=== PATIENT | female | born 1990 | race Caucasian/White ===

== ENCOUNTER 2019-03-09 18:10 | Emergency (ER) | payer BC ==
[2019-03-09 18:33] VITALS: RESP 18; TEMP 98.6
[2019-03-09] MEDS ORDERED: METOCLOPRAMIDE 5 MG/ML 2 ML VIAL IVP STA (19:03)
[2019-03-09] MEDS ORDERED: SODIUM CHLORIDE 0.9% 1,000 ML IV STA (19:04)
--- NOTE | 2019-03-09 19:06 | ED ---
General Adult HPI - General Chief complaint: Nausea/Vomiting/Diarrhea Stated complaint: 8 weeks and not able to keep anything earl Time Seen by Provider: 03/09/19 18:35 Source: patient, RN notes reviewed Mode of arrival: ambulatory Limitations: no limitations - History of Present Illness Initial comments: 28-year-old female currently 8 weeks presents to the emergency department for a chief complaint of nausea and vomiting. Patient states that since she has gotten she has been very nauseous. States that she vomits about 1-2 times per day. States she does not feel that she is keeping down solids or liquids well and is concerned this could be affecting the baby. Patient denies any vaginal bleeding or pelvic pain. Patient states she has not had an ultrasound but would prefer to wait for an OB to have this done. States that she is currently trying to schedule an appointment for this. Patient denies any fevers or chills. Denies any abdominal pain or diarrhea.Patient has no other complaints at this time including shortness of breath, chest pain, abdominal pain, headache, or visual changes. - Related Data Home Medications Medication Instructions Recorded Confirmed No Known Home Medications 03/09/19 03/09/19 Allergies Allergy/AdvReac Type Severity Reaction Status Date / Time diphenhydramine Allergy Dyspnea Verified 03/09/19 19:21 latex Allergy Unknown Verified 03/09/19 19:21 peanut Allergy Unknown Verified 03/09/19 19:21 promethazine [From Phenergan] Allergy Dyspnea Verified 03/09/19 19:21 Review of Systems ROS Statement: Those systems with pertinent positive or pertinent negative responses have been documented in the HPI. ROS Other: All systems not noted in ROS Statement are negative. Past Medical History Past Medical History: No Reported History History of Any Multi-Drug Resistant Organisms: None Reported Past Surgical History: Cholecystectomy Past Psychological History: No Psychological Hx Reported Smoking Status: Never smoker Past Alcohol Use History: None Reported Past Drug Use History: None Reported General Exam Limitations: no limitations General appearance: alert, in no apparent distress Head exam: Present: atraumatic, normocephalic, normal inspection Eye exam: Present: normal appearance, PERRL, EOMI. Absent: scleral icterus, conjunctival injection, periorbital swelling ENT exam: Present: normal exam, mucous membranes moist Neck exam: Present: normal inspection, full ROM. Absent: tenderness, meningismus, lymphadenopathy Respiratory exam: Present: normal lung sounds bilaterally. Absent: respiratory distress, wheezes, rales, rhonchi, stridor Cardiovascular Exam: Present: regular rate, normal rhythm, normal heart sounds. Absent: systolic murmur, diastolic murmur, rubs, gallop, clicks GI/Abdominal exam: Present: soft, normal bowel sounds. Absent: distended, tenderness, guarding, rebound, rigid External exam: Present: other (Refuses pelvic exam) Neurological exam: Present: alert, oriented X3 Psychiatric exam: Present: normal affect, normal mood Course Vital Signs 03/09/19 18:30 Temperature 98.6 F Pulse Rate 81 Respiratory 18 Rate Blood Pressure 115/80 O2 Sat by Pulse 99 Oximetry Medical Decision Making - Medical Decision Making 28-year-old female currently 8 weeks presents for chief clinic nausea vomiting. States that since she has gotten she has been very nauseous. States she vomits about 1-2 times per day. Denies any abdominal pain or pelvic pain. Last menstrual period being January 15. Patient has not yet followed up with an OB but is calling to make appointments. On exam patient is well- appearing. Vitals are stable. CBC and CMP are unremarkable. No evidence of dehydration. Urine is negative for infection. HCG Quant did come back at 225,000. Initially discussed with patient and she refused ultrasound. However bedside ultrasound was performed by myself and Dr. Galvan to rule out molar . At this time no evidence for molar . Ultrasound appears normal. Intrauterine is noted. Patient feeling somewhat better after medicines given. She will return here if she has any worsening symptoms. Otherwise she will follow-up with [facility] LEGAL ASSISTANT in one to 2 days. - Lab Data Result diagrams: 03/09/19 18:52 03/09/19 18:52 Lab Results 03/09/19 03/09/19 03/09/19 Range/Units 18:52 18:52 19:50 WBC 7.2 (3.8-10.6) k/uL RBC 4.87 (3.80-5.40) m/uL Hgb 14.5 (11.4-16.0) gm/dL Hct 43.2 (34.0-46.0) % MCV 88.8 (80.0-100.0) fL MCH 29.7 (25.0-35.0) pg MCHC 33.5 (31.0-37.0) g/dL RDW 15.3 (11.5-15.5) % Plt Count 287 (150-450) k/uL Neutrophils % 71 % Lymphocytes % 21 % Monocytes % 5 % Eosinophils % 1 % Basophils % 0 % Neutrophils # 5.1 (1.3-7.7) k/uL Lymphocytes # 1.5 (1.0-4.8) k/uL Monocytes # 0.4 (0-1.0) k/uL Eosinophils # 0.1 (0-0.7) k/uL Basophils # 0.0 (0-0.2) k/uL Sodium 137 (137-145) mmol/L Potassium 4.2 (3.5-5.1) mmol/L Chloride 100 (98-107) mmol/L Carbon Dioxide 24 (22-30) mmol/L Anion Gap 13 mmol/L BUN 11 (7-17) mg/dL Creatinine 0.51 L (0.52-1.04) mg/dL Est GFR (CKD-EPI)AfAm >90 (>60 ml/min/1.73 sqM) Est GFR (CKD-EPI)NonAf >90 (>60 ml/min/1.73 sqM) Glucose 96 (74-99) mg/dL Calcium 10.1 (8.4-10.2) mg/dL Total Bilirubin 0.3 (0.2-1.3) mg/dL AST 20 (14-36) U/L ALT 10 (9-52) U/L Alkaline Phosphatase 72 (38-126) U/L Total Protein 8.3 H (6.3-8.2) g/dL Albumin 4.8 (3.5-5.0) g/dL Amylase 66 (30-110) U/L Lipase 160 (23-300) U/L HCG, Quant >734196.0 mIU/mL Urine Color Yellow Urine Appearance Clear (Clear) Urine pH 6.0 (5.0-8.0) Ur Specific [place] 1.029 (1.001-1.035) Urine Protein Trace H (Negative) Urine Glucose (UA) Negative (Negative) Urine Ketones 1+ H (Negative) Urine Blood Negative (Negative) Urine Nitrite Negative (Negative) Urine Bilirubin Negative (Negative) Urine Urobilinogen <2.0 (<2.0) mg/dL Ur Leukocyte Esterase Negative (Negative) Disposition Clinical Impression: Nausea and vomiting in Disposition: HOME SELF-CARE Condition: Good Instructions (If sedation given, give patient instructions): Hyperemesis Gravidarum (ED) Additional Instructions: Please drink plenty of fluids. Follow-up with [facility]GAL ASSISTANT in one to 2 days. Return here if you have any worsening symptoms or vaginal bleeding. Is patient prescribed a controlled substance at d/c from ED?: No Referrals: Earnestine Viveros DO [Doctor of Osteopathic Medicine] - 1-2 days Time of Disposition: 21:56
[2019-03-09 19:45] LABS: Basophils % (A) 0 %; Eosinophils # (A) 0.1 k/uL (0-0.7); Eosinophils % (A) 1 %; HCT 43.2 % (34.0-46.0); HGB 14.5 gm/dL (11.4-16.0); Lymphocytes # (A) 1.5 k/uL (1.0-4.8); Lymphocytes % (A) 21 %; MCH 29.7 pg (25.0-35.0); MCHC 33.5 g/dL (31.0-37.0); MCV 88.8 fL (80.0-100.0); Mean Platelet Volume 7.2; Monocytes # (A) 0.4 k/uL (0-1.0); Monocytes % (A) 5 %; Neutrophils # (A) 5.1 k/uL (1.3-7.7); Neutrophils % (A) 71 %; Platelet Count 287 k/uL (150-450); RBC 4.87 m/uL (3.80-5.40); RDW 15.3 % (11.5-15.5); WBC 7.2 k/uL (3.8-10.6)
[2019-03-09 19:56] LABS: ALT 10 U/L (9-52); AST 20 U/L (14-36); African American GFR (CKD) >90 (>60 ml/min/1.73 sqM); Albumin 4.8 g/dL (3.5-5.0); Alkaline Phosphatase 72 U/L (38-126); Amylase 66 U/L (30-110); Anion Gap 13 mmol/L; Blood Urea Nitrogen 11 mg/dL (7-17); Calcium 10.1 mg/dL (8.4-10.2); Carbon Dioxide 24 mmol/L (22-30); Chloride 100 mmol/L (98-107); Glucose 96 mg/dL (74-99); Potassium 4.2 mmol/L (3.5-5.1); Sodium 137 mmol/L (137-145); Total Bilirubin 0.3 mg/dL (0.2-1.3); Total Protein 8.3 g/dL (6.3-8.2)
[2019-03-09 20:45] LABS: Appearance,Urine Clear (Clear); Bilirubin,Urine Negative (Negative); Blood,Urine Negative (Negative); Color,Urine Yellow; Glucose,Urine (UA) Negative (Negative); Ketones,Urine 1+ (Negative); Leukocyte Esterase,Urine Negative (Negative); Nitrite,Urine Negative (Negative); Protein,Urine Trace (Negative); Specific Gravity,Urine 1.029 (1.001-1.035); Urobilinogen,Urine <2.0 mg/dL (<2.0)
[2019-03-09 21:14] LABS: HCG,Quantitative Serum >225000.0 mIU/mL
[2019-03-09 22:14] VITALS: BP 110/74; PULSE 85
== END 2019-03-09 22:13 | disposition home or self-care (01) ==
LOC: EC 18:10
DX: O21.9 Vomiting of pregnancy, unspecified (principal); O99.89 Other specified diseases and conditions complicating pregnancy, childbirth and the puerperium; R19.7 Diarrhea, unspecified; Z88.8 Allergy status to other drugs, medicaments and biological substances; Z91.040 Latex allergy status; Z91.010 Allergy to peanuts; Z53.29 Procedure and treatment not carried out because of patient's decision for other reasons; Z3A.08 8 weeks gestation of pregnancy
CPT/HCPCS: 36415; 80053; 82150; 83690; 85025; 81003; 84702; 99284; 96374; 96361; J2765

== ENCOUNTER 2019-03-11 20:29 | Emergency (ER) | payer BC ==
[2019-03-11] MEDS ORDERED: SODIUM CHLORIDE 0.9% 1,000 ML IV STA ×2 (21:07→22:59)
[2019-03-11] MEDS ORDERED: METOCLOPRAMIDE 5 MG/ML 2 ML VIAL IVP STA (22:02)
[2019-03-11] MEDS ORDERED: DEXTROSE 5%-0.45% NACL 1,000 ML IV ONE (22:02)
--- NOTE | 2019-03-11 22:04 | ED ---
General Adult HPI - General Chief complaint: Nausea/Vomiting/Diarrhea Stated complaint: vomiting Time Seen by Provider: 03/11/19 21:04 Source: patient, RN notes reviewed Mode of arrival: ambulatory Limitations: no limitations - History of Present Illness Initial comments: 28-year-old female presents to the emergency department for a chief complaint of nausea vomiting. Patient is a . Patient is currently about 9 weeks . States that she does not think she is keeping anything down. States that she is having multiple times a day and it seems to be getting worse. Patient denies any pelvic pain or vaginal bleeding. Patient is concerned that she is dehydrated and malnourished. Patient states she is trying to follow-up with an WAREHOUSE SHIPPING CLERK but has been unable to make an appointment.Patient has no other complaints at this time including shortness of breath, chest pain, abdominal pain, headache, or visual changes. - Related Data Previous Rx's Medication Instructions Recorded Doxylamine/Pyridoxine HCl (B6) 1 each PO HS #15 tablet. 03/11/19 [Silvia Albarado 10-10 mg Tablet] Metoclopramide HCl [Reglan] 10 mg PO ONCE PRN #1 tablet 03/11/19 Allergies Allergy/AdvReac Type Severity Reaction Status Date / Time diphenhydramine Allergy Dyspnea Verified 03/11/19 20:45 latex Allergy Unknown Verified 03/11/19 20:45 peanut Allergy Unknown Verified 03/11/19 20:45 promethazine [From Phenergan] Allergy Dyspnea Verified 03/11/19 20:45 Review of Systems ROS Statement: Those systems with pertinent positive or pertinent negative responses have been documented in the HPI. ROS Other: All systems not noted in ROS Statement are negative. Past Medical History Past Medical History: No Reported History History of Any Multi-Drug Resistant Organisms: None Reported Past Surgical History: Cholecystectomy Additional Past Surgical History / Comment(s): wisdom teeth Past Psychological History: No Psychological Hx Reported Smoking Status: Never smoker Past Alcohol Use History: None Reported Past Drug Use History: None Reported General Exam Limitations: no limitations General appearance: alert, in no apparent distress Head exam: Present: atraumatic, normocephalic, normal inspection Eye exam: Present: normal appearance, PERRL, EOMI. Absent: scleral icterus, conjunctival injection, periorbital swelling ENT exam: Present: normal exam, mucous membranes moist Neck exam: Present: normal inspection, full ROM. Absent: tenderness, meningismus, lymphadenopathy Respiratory exam: Present: normal lung sounds bilaterally. Absent: respiratory distress, wheezes, rales, rhonchi, stridor Cardiovascular Exam: Present: regular rate, normal rhythm, normal heart sounds. Absent: systolic murmur, diastolic murmur, rubs, gallop, clicks GI/Abdominal exam: Present: soft, normal bowel sounds. Absent: distended, tenderness, guarding, rebound, rigid Neurological exam: Present: alert Psychiatric exam: Present: normal affect, normal mood Course Vital Signs 03/11/19 03/11/19 20:42 21:48 Temperature 99.2 F Pulse Rate 110 H Respiratory 20 16 Rate Blood Pressure 120/78 O2 Sat by Pulse 97 Oximetry Medical Decision Making - Medical Decision Making 28-year-old female presents to the emergency department for a chief complaint of nausea vomiting. Patient is currently 8 weeks . On presentation patient is well-appearing. She delivered one episode of emesis here in the emergency department. Patient has not been able to follow-up with an OB as of yet. Patient did have an bedside ultrasound the last time she was in the emergency department which showed an intrauterine . CBC CMP unremarkable. Urine does show 4+ ketones. Patient was given fluids and Reglan. She is feeling much better. Patient will be discharged home after 2 L of fluids. She will be given likely just and 1 Reglan. She'll return if she has any worsening symptoms. - Lab Data Result diagrams: 03/11/19 21:40 03/11/19 21:40 Lab Results 03/11/19 03/11/19 03/11/19 Range/Units 21:40 21:40 22:15 WBC 7.7 (3.8-10.6) k/uL RBC 4.88 (3.80-5.40) m/uL Hgb 14.1 (11.4-16.0) gm/dL Hct 43.3 (34.0-46.0) % MCV 88.8 (80.0-100.0) fL MCH 28.9 (25.0-35.0) pg MCHC 32.6 (31.0-37.0) g/dL RDW 14.5 (11.5-15.5) % Plt Count 311 (150-450) k/uL Neutrophils % 81 % Lymphocytes % 11 % Monocytes % 5 % Eosinophils % 1 % Basophils % 0 % Neutrophils # 6.3 (1.3-7.7) k/uL Lymphocytes # 0.9 L (1.0-4.8) k/uL Monocytes # 0.4 (0-1.0) k/uL Eosinophils # 0.1 (0-0.7) k/uL Basophils # 0.0 (0-0.2) k/uL Sodium 138 (137-145) mmol/L Potassium 4.2 (3.5-5.1) mmol/L Chloride 104 (98-107) mmol/L Carbon Dioxide 22 (22-30) mmol/L Anion Gap 12 mmol/L BUN 12 (7-17) mg/dL Creatinine 0.51 L (0.52-1.04) mg/dL Est GFR (CKD-EPI)AfAm >90 (>60 ml/min/1.73 sqM) Est GFR (CKD-EPI)NonAf >90 (>60 ml/min/1.73 sqM) Glucose 93 (74-99) mg/dL Calcium 9.7 (8.4-10.2) mg/dL Total Bilirubin 0.4 (0.2-1.3) mg/dL AST 24 (14-36) U/L ALT 16 (9-52) U/L Alkaline Phosphatase 72 (38-126) U/L Total Protein 8.0 (6.3-8.2) g/dL Albumin 4.5 (3.5-5.0) g/dL Amylase 68 (30-110) U/L Lipase 176 (23-300) U/L HCG, Quant >029849.0 mIU/mL Urine Color Yellow Urine Appearance Clear (Clear) Urine pH 6.0 (5.0-8.0) Ur Specific [place] 1.038 H (1.001-1.035) Urine Protein 1+ H (Negative) Urine Glucose (UA) Negative (Negative) Urine Ketones 4+ H (Negative) Urine Blood Negative (Negative) Urine Nitrite Negative (Negative) Urine Bilirubin Negative (Negative) Urine Urobilinogen 2.0 (<2.0) mg/dL Ur Leukocyte Esterase Negative (Negative) Urine WBC 1 (0-5) /hpf Ur Squamous Epith Cells 1 (0-4) /hpf Urine Bacteria Rare H (None) /hpf Urine Mucus Many H (None) /hpf Disposition Clinical Impression: Nausea and vomiting in Disposition: HOME SELF-CARE Condition: Good Instructions (If sedation given, give patient instructions): Hyperemesis Gravidarum (ED) Additional Instructions: Please take medications as directed. Please follow-up with primary care and WAREHOU[facility] SHIPPING CLERK in 1-2 days. Return here to the emergency department if you have any worsening symptoms. Prescriptions: Doxylamine/Pyridoxine HCl (B6) [Silvia Albarado 10-10 mg Tablet] 1 each PO HS #15 tablet. Metoclopramide HCl [Reglan] 10 mg PO ONCE PRN #1 tablet PRN Reason: Nausea Is patient prescribed a controlled substance at d/c from ED?: No Referrals: David Abernathy MD [STAFF PHYSICIAN] - 1-2 days Paz Luciano MD [STAFF PHYSICIAN] - 1-2 days Time of Disposition: 23:40
[2019-03-11 22:05] LABS: Basophils % (A) 0 %; Eosinophils # (A) 0.1 k/uL (0-0.7); Eosinophils % (A) 1 %; HCT 43.3 % (34.0-46.0); HGB 14.1 gm/dL (11.4-16.0); Lymphocytes # (A) 0.9 k/uL (1.0-4.8); Lymphocytes % (A) 11 %; MCH 28.9 pg (25.0-35.0); MCHC 32.6 g/dL (31.0-37.0); MCV 88.8 fL (80.0-100.0); Mean Platelet Volume 7.2; Monocytes # (A) 0.4 k/uL (0-1.0); Monocytes % (A) 5 %; Neutrophils # (A) 6.3 k/uL (1.3-7.7); Neutrophils % (A) 81 %; Platelet Count 311 k/uL (150-450); RBC 4.88 m/uL (3.80-5.40); RDW 14.5 % (11.5-15.5); WBC 7.7 k/uL (3.8-10.6)
[2019-03-11 22:14] LABS: ALT 16 U/L (9-52); AST 24 U/L (14-36); African American GFR (CKD) >90 (>60 ml/min/1.73 sqM); Albumin 4.5 g/dL (3.5-5.0); Alkaline Phosphatase 72 U/L (38-126); Amylase 68 U/L (30-110); Anion Gap 12 mmol/L; Blood Urea Nitrogen 12 mg/dL (7-17); Calcium 9.7 mg/dL (8.4-10.2); Carbon Dioxide 22 mmol/L (22-30); Chloride 104 mmol/L (98-107); Glucose 93 mg/dL (74-99); Potassium 4.2 mmol/L (3.5-5.1); Sodium 138 mmol/L (137-145); Total Bilirubin 0.4 mg/dL (0.2-1.3)
[2019-03-11 22:31] LABS: Appearance,Urine Clear (Clear); Bacteria,Urine Rare /hpf; Bilirubin,Urine Negative (Negative); Blood,Urine Negative (Negative); Color,Urine Yellow; Glucose,Urine (UA) Negative (Negative); Ketones,Urine 4+ (Negative); Leukocyte Esterase,Urine Negative (Negative); Mucus,Urine Many /hpf; Nitrite,Urine Negative (Negative); Protein,Urine 1+ (Negative); Specific Gravity,Urine 1.038 (1.001-1.035); Squamous Epithelial Cell,Urine 1 /hpf (0-4); WBC,Urine 1 /hpf (0-5)
[2019-03-11 22:57] LABS: HCG,Quantitative Serum >225000.0 mIU/mL
[2019-03-11 23:47] VITALS: BP 100/69; PULSE 94; RESP 18; TEMP 98
== END 2019-03-12 00:06 | disposition home or self-care (01) ==
LOC: EC 20:29
DX: O21.9 Vomiting of pregnancy, unspecified (principal); O99.89 Other specified diseases and conditions complicating pregnancy, childbirth and the puerperium; R82.4 Acetonuria; Z3A.08 8 weeks gestation of pregnancy; Z90.49 Acquired absence of other specified parts of digestive tract; Z88.6 Allergy status to analgesic agent; Z88.8 Allergy status to other drugs, medicaments and biological substances; Z91.010 Allergy to peanuts; Z91.040 Latex allergy status
CPT/HCPCS: 36415; 80053; 82150; 83690; 85025; 81001; 84702; 99284; 96374; 96361 ×2; J2765; 87086

== ENCOUNTER 2019-07-18 12:56 | Emergency (ER) | payer BC ==
--- NOTE | 2019-07-18 13:59 | ED ---
URI HPI - General Chief Complaint: Upper Respiratory Infection Stated Complaint: ADRIA Time Seen by Provider: 07/18/19 13:05 Source: patient, family, RN notes reviewed, old records reviewed Mode of arrival: ambulatory Limitations: no limitations - History of Present Illness Initial Comments: Jessi is a 28 rolled female, . She is approximately 27 weeks . She presents today with feeling like she was having some issues or swelling within her throat. She states that she coughed and cleared it. Patient at this time has no other significant pains. She states that she's had no further coughing. She states that today when this occurred she felt that her fingers were numb and tingly. - Related Data Previous Rx's Medication Instructions Recorded Doxylamine/Pyridoxine HCl (B6) 1 each PO HS #15 tablet. 03/11/19 [Silvia Albarado 10-10 mg Tablet] Metoclopramide HCl [Reglan] 10 mg PO ONCE PRN #1 tablet 03/11/19 Allergies Allergy/AdvReac Type Severity Reaction Status Date / Time diphenhydramine Allergy Dyspnea Verified 03/11/19 20:45 latex Allergy Unknown Verified 03/11/19 20:45 peanut Allergy Unknown Verified 03/11/19 20:45 promethazine [From Phenergan] Allergy Dyspnea Verified 03/11/19 20:45 Review of Systems ROS Statement: Those systems with pertinent positive or pertinent negative responses have been documented in the HPI. ROS Other: All systems not noted in ROS Statement are negative. Past Medical History Past Medical History: No Reported History History of Any Multi-Drug Resistant Organisms: None Reported Past Surgical History: Cholecystectomy Additional Past Surgical History / Comment(s): wisdom teeth Past Psychological History: No Psychological Hx Reported Smoking Status: Never smoker Past Alcohol Use History: None Reported Past Drug Use History: None Reported General Exam - General Exam Comments Initial Comments: oriented 28-year-old female. Alert. No distress. Limitations: no limitations General appearance: alert, in no apparent distress Head exam: Present: atraumatic, normocephalic, normal inspection Eye exam: Present: normal appearance, PERRL, EOMI. Absent: scleral icterus, conjunctival injection, periorbital swelling ENT exam: Present: normal exam, normal oropharynx, mucous membranes moist Neck exam: Present: normal inspection. Absent: tenderness, meningismus, lymphadenopathy Respiratory exam: Present: normal lung sounds bilaterally, other (no stridor. Lungs are clear. Oxygenation 100% on room air.). Absent: respiratory distress, wheezes, rales, rhonchi, stridor Cardiovascular Exam: Present: regular rate, normal rhythm, normal heart sounds. Absent: systolic murmur, diastolic murmur, rubs, gallop, clicks GI/Abdominal exam: Present: soft, normal bowel sounds. Absent: distended, tenderness, guarding, rebound, rigid Extremities exam: Present: normal inspection, full ROM, normal capillary refill. Absent: tenderness, pedal edema, joint swelling, calf tenderness Back exam: Present: normal inspection Neurological exam: Present: alert, oriented X3, CN II-XII intact Psychiatric exam: Present: flat affect, other (is a flat affect.). Absent: normal affect, normal mood Skin exam: Present: warm, dry, intact, normal color. Absent: rash Course Vital Signs 07/18/19 12:59 Temperature 97.6 F Pulse Rate 76 Respiratory 18 Rate Blood Pressure 99/66 O2 Sat by Pulse 98 Oximetry Medical Decision Making - Medical Decision Making 28-year-old female presents today for abnormal sensation in her throat, and a cough to clear them. She'll her throat was closing. She at this time has 100% sensation. No stridor. No swelling. Oropharynx appears normal. She has an appointment tomorrow with an ENT. I discussed that Patient can follow-up with ENT has no further testing can do at this time especially the Patient is . No warranting further imaging at this time. Discussed appropriate return parameters and following up with her ENT as discussed. Disposition Clinical Impression: Throat irritation Disposition: HOME SELF-CARE Condition: Good Instructions (If sedation given, give patient instructions): Pharyngitis (ED) Additional Instructions: Recommended following up with her ENT appointment tomorrow. Patient should continue using nystatin as per sleep prescribed. Return to emergency department if any alarming signs or symptoms occur. Is patient prescribed a controlled substance at d/c from ED?: No Referrals: None,Stated [Primary Care Provider] - 1-2 days Time of Disposition: 13:59
[2019-07-18 14:09] VITALS: BP 100/78; PULSE 92; RESP 16; TEMP 97.2
== END 2019-07-18 14:08 | disposition home or self-care (01) ==
LOC: EC 12:56
DX: O99.89 Other specified diseases and conditions complicating pregnancy, childbirth and the puerperium (principal); R09.89 Other specified symptoms and signs involving the circulatory and respiratory systems; Z88.8 Allergy status to other drugs, medicaments and biological substances; Z91.010 Allergy to peanuts; Z91.040 Latex allergy status; Z3A.27 27 weeks gestation of pregnancy
CPT/HCPCS: 99285